=== PATIENT | female | born 1995 | race Caucasian/White ===

== ENCOUNTER 2022-03-08 05:31 | Inpatient (IN) | payer OTHER, SELFPAY ==
[2022-03-07 12:28] LABS: #Basophils 0.1 10x3/uL (0.0-0.2); #Eosinphils 0.1 10x3/uL (0.0-0.5); #Monocytes 0.6 10x3/uL (0.0-1.1); #Neutrophils 8.2 10x3/uL (1.5-8.4); %Basophils 0.6 % (0.0-2.0); %Monocytes 5.6 % (0.0-10.0); %Neutrophils 73.7 % (40.0-75.0); Hemoglobin 13.2 g/dL (12.0-15.5); Mean Corpuscular Volume 91.3 fl (81.6-98.3); Mean Platelet Volume 10.6 fl (7.4-10.4); Platelet Count 234 10x3/uL (150-450); Red Blood Cell (RBC) Count 4.13 10x6/uL (3.90-5.03); White Blood Cell (WBC) Count 11.2 10x3/uL (3.5-10.5)
[2022-03-07 12:58] LABS: Syphilis Antibody Nonreactive (Nonreactive); Syphilis Antibody Index 0.02 S/CO (<1.00 Non-Reactive)
[2022-03-07 12:59] LABS: HBSAg Index 0.16 S/CO (0-0.99); Hep B Surf Ag Non-Reactive S/CO (NonReactive)
[2022-03-07 13:09] LABS: SARS-CoV-2 NAA Rapid Test Not Detected (NotDetected)
[~2022-03-08 05:31] MED LIST: Bicitra 30 ML UDCUP PO PRN; CEFAZOLIN 2 GM in Sodium Chloride 0.9% 100 ML IVPB SCH; Famotidine/PF 20 mg/2ml Vial SLOW IVP PRN; Lactated Ringer's 1,000 ML IV SCH; Ondansetron PF 4 MG/2 ML Vial IVP PRN; Promethazine HCl 25 MG/ML VIAL IM PRN; hydrALAZINE 20 MG/ML VIAL SLOW IVP PRN
[2022-03-08 06:00] VITALS: BMI 29.9
[2022-03-08] MEDS ORDERED: Famotidine/PF 20 mg/2ml Vial SLOW IVP PRN (06:30)
[2022-03-08] MEDS ORDERED: Lactated Ringer's 1,000 ML IV SCH (06:30)
[2022-03-08] MEDS ORDERED: CEFAZOLIN 2 GM in Sodium Chloride 0.9% 100 ML IVPB SCH (06:30)
[2022-03-08] MEDS ORDERED: Bicitra 30 ML UDCUP PO PRN (06:31)
[2022-03-08] MEDS ORDERED: Ketorolac Tromethamine 30 MG/ML VIAL ONE (06:51)
[2022-03-08] MEDS ORDERED: Ondansetron PF 4 MG/2 ML Vial ONE (06:51)
[2022-03-08] MEDS ORDERED: Oxytocin 10 UNITS/ML VIAL ONE ×2 (06:51→08:24)
[2022-03-08] MEDS ORDERED: Phenylephrine 40 MG/NS 250 ML 250 ML ONE (06:51)
[2022-03-08] MEDS ORDERED: Morphine PF 10 MG/10 ML VIAL ONE (06:51)
[2022-03-08] MEDS ORDERED: ePHEDrine Sulfate 50 MG/10 ML VIAL ONE (06:51)
[2022-03-08] MEDS ORDERED: PHENYLEPHRINE-NS 100 MCG/ML 10 ML SYRINGE ONE (06:51)
[2022-03-08] MEDS ORDERED: Naloxone HCl 0.4 mg/ml Vial IV PRN ×2 (07:24→11:33)
[2022-03-08] MEDS ORDERED: Promethazine HCl 25 MG SUPP PR PRN (07:24)
[2022-03-08] MEDS ORDERED: Meperidine HCl/PF 25 MG/ML VIAL SLOW IVP PRN (07:24)
[2022-03-08] MEDS ORDERED: Ondansetron HCl/PF 4 MG/2 ML Vial IVP PRN (07:24)
[2022-03-08] MEDS ORDERED: Moisturizing Cream (Eucerin) 113 GM JAR TOP PRN (07:24)
[2022-03-08] MEDS ORDERED: Ondansetron PF 4 MG/2 ML Vial IVP PRN ×2 (07:24→11:07)
[2022-03-08] MEDS ORDERED: Promethazine HCl 25 MG/ML VIAL IM PRN ×2 (07:24→11:07)
[2022-03-08] MEDS ORDERED: Naloxone HCl 0.4 mg/ml Vial IVP PRN ×2 (07:24)
[2022-03-08] MEDS ORDERED: diphenhydrAMINE 50 MG/ML VIAL IVP PRN ×2 (07:24→11:31)
[2022-03-08] MEDS ORDERED: Fentanyl 100 MCG/2 ML VIAL SLOW IVP PRN (07:24)
[2022-03-08] MEDS ORDERED: Communication Order-Pharmacy FS SCH (07:30)
[2022-03-08] MEDS ORDERED: Zolpidem Tartrate 5 MG TAB PO PRN (11:07)
[2022-03-08] MEDS ORDERED: Boostrix 0.5 ML (Tdap) VIAL (>/=7 yrs of age) IM ONE (11:07)
[2022-03-08] MEDS ORDERED: NS w/ Oxytocin 30 units 500 ML IV SCH (11:07)
[2022-03-08] MEDS ORDERED: Meperidine HCl/PF 25 MG/ML VIAL IM PRN (11:07)
[2022-03-08] MEDS ORDERED: HYDROcodone/Acetaminophen 5/325 mg Tablet PO PRN (11:07)
[2022-03-08] MEDS ORDERED: diphenhydrAMINE 25 MG CAP PO PRN (11:07)
[2022-03-08] MEDS ORDERED: Simethicone Chewable 80 MG TAB PO PRN (11:07)
[2022-03-08] MEDS ORDERED: Lanolin Ointment 7 GM TUBE TOP PRN (11:07)
[2022-03-08] MEDS ORDERED: hydrALAZINE 20 MG/ML VIAL SLOW IVP PRN (11:07)
[2022-03-08] MEDS: Lactated Ringer's 1,000 ML IV SCH (11:14)
[2022-03-08] MEDS ORDERED: Prenatal Vitamin 1 TAB PO SCH (11:15)
[2022-03-08] MEDS ORDERED: Docusate 100 MG CAP PO SCH (11:15)
[2022-03-08] MEDS: Ketorolac Tromethamine 30 MG/ML VIAL IVP PRN (14:32)
[2022-03-08] MEDS ORDERED: Ketorolac Tromethamine 30 MG/ML VIAL IVP SCH (16:30)
[2022-03-08] MEDS ORDERED: Ketorolac Tromethamine 30 MG/ML VIAL IVP PRN (16:30)
[2022-03-09 03:51] LABS: Hemoglobin 10.8 g/dL (12.0-15.5); Mean Corpuscular HGB CONC 35.2 g/dL (32.0-36.0); Mean Corpuscular Volume 91.1 fl (81.6-98.3); Mean Platelet Volume 10.8 fl (7.4-10.4); Platelet Count 184 10x3/uL (150-450); RBC Distribution Width 12.7 % (11.5-14.5); Red Blood Cell (RBC) Count 3.37 10x6/uL (3.90-5.03); White Blood Cell (WBC) Count 11.2 10x3/uL (3.5-10.5)
[2022-03-09] MEDS: Ketorolac Tromethamine 30 MG/ML VIAL IVP PRN (04:07)
[2022-03-09] MEDS: Docusate 100 MG CAP PO SCH ×3 (08:19→21:21)
[2022-03-09] MEDS: Prenatal Vitamin 1 TAB PO SCH (08:20)
[2022-03-09] MEDS: HYDROcodone/Acetaminophen 5/325 mg Tablet PO PRN ×3 (12:05→18:50)
[2022-03-09] MEDS: Lactated Ringer's 1,000 ML IV SCH ×4 (15:16→19:26)
[2022-03-09] MEDS: Ibuprofen 800 MG TAB PO SCH (21:22)
[2022-03-10] MEDS: Ibuprofen 800 MG TAB PO SCH (05:15)
[2022-03-10 07:47] VITALS: TEMP 98.4
[2022-03-10] MEDS: Prenatal Vitamin 1 TAB PO SCH (09:20)
[2022-03-10] MEDS: HYDROcodone/Acetaminophen 5/325 mg Tablet PO PRN (09:21)
[2022-03-10] MEDS: Docusate 100 MG CAP PO SCH (09:21)
[2022-03-10 11:45] VITALS: BP 112/71
[2022-03-13] MEDS ORDERED: Ibuprofen 800 MG TAB PO SCH (14:00)
== END 2022-03-10 13:05 | disposition home or self-care (01) | DRG 788 ==
LOC: CSHLD 05:31 → CSHPP 10:45
PROVIDERS: ADMIT Obstetrics & Gynecology; ATTEND Obstetrics & Gynecology
PROC: 10D00Z1 Extraction of Products of Conception, Low, Open Approach (ICD-10-PCS; principal; 2022-03-08)
DX: O32.1XX0 Maternal care for breech presentation, not applicable or unspecified (principal); Z37.0 Single live birth; Z3A.39 39 weeks gestation of pregnancy; Z20.822 Contact with and (suspected) exposure to COVID-19
CPT/HCPCS: 36415; 51702; 85025; 85027; 86780; 86850; 86900; 86901; 87340; J1200; J1885; J2274; J2405; J2590; J3490; J7120; S0028; U0002